=== PATIENT | female | born 1965 | race African-American/Black ===

== ENCOUNTER 2017-03-01 00:19 | Emergency (ER) | payer BC ==
[~2017-03-01] VITALS: Ht 157.5 cm; Wt 83.9 kg
[~2017-03-01 00:19] MED LIST: BUSP5TAB3 PO; LOSA1TAB35 PO; METO50TA7 PO; NOR10 PO; POTA-118 PO
[2017-03-01 00:24] VITALS: BP_SYST 183
[2017-03-01] MEDS ORDERED: cloNIDine HCL 0.1 MG TABLET PO ONE (00:45)
[2017-03-01 01:25] VITALS: BP_SYST 165
== END 2017-03-01 01:25 | disposition home or self-care (01) ==
LOC: SED 00:19
DX: I10 Essential (primary) hypertension (principal)
CPT/HCPCS: 93005; 99283

== ENCOUNTER 2018-10-14 12:48 | Outpatient (CLI) | payer BC ==
[~2018-10-14 12:48] MED LIST changes: -LOSA1TAB35 PO; +LOSA1TAB40 PO; -POTA-118 PO; +POTA10TA15 PO
== END 2018-10-14 21:13 | disposition home or self-care (01) ==
LOC: SRD 12:48
PROVIDERS: ATTEND Surgery Vascular Surgery
DX: I67.1 Cerebral aneurysm, nonruptured (principal); R19.09 Other intra-abdominal and pelvic swelling, mass and lump; M47.814 Spondylosis without myelopathy or radiculopathy, thoracic region; M41.84 Other forms of scoliosis, thoracic region
CPT/HCPCS: 71046-TC